=== PATIENT | male | born 1955 | race Caucasian/White ===

== ENCOUNTER 2018-10-31 06:39 | Emergency (ER) | payer OTHER ==
[2018-10-31] MEDS ORDERED: LIDOCAINE 1% MPF 5 ML VIAL ONE (07:23)
[2018-10-31] MEDS ORDERED: SMZ./TMP. 800/160 MG TABLET ONE (07:23)
[2018-10-31] MEDS ORDERED: CEPHALEXIN 250 MG CAP ONE (07:23)
[2018-10-31] MEDS ORDERED: LORAZEPAM 0.5 MG TABLET ONE (07:32)
--- NOTE | 2018-10-31 08:23 | EDPHYS ---
Physician Documentation [facility] Name: Rufino Mclain Age: 63 yrs Sex: Male : 1955 Arrival Date: 10/31/2018 Time: 06:44 Bed 15 Private MD: ED Physician Stephen James HPI: 10/31 07:05 This 63 yrs old Male presents to ER via Ambulatory with complaints of Boil. kb 07:05 The patient presents with an abscess of the gluteal cleft. Description: erythematous, kb fluctuant, swollen, warm. Onset: The symptoms/episode began/occurred 6 month(s) ago. Possible cause(s): unknown. Associated signs and symptoms: Pertinent positives: erythema, swelling, Pertinent negatives: discharge, drainage, foreign body sensation, fever, headache, nausea, shortness of breath, vomiting. Modifying factors: the symptoms are alleviated by nothing, the symptoms are aggravated by touching. Severity of symptoms: At their worst the symptoms were moderate, in the emergency department the symptoms are unchanged. The patient has not experienced similar symptoms in the past. The patient has not recently seen a physician. "I have a boil on my ass. It's been moving up and down the crack of my ass for 6 months. Now it is on the right side and it started to hurt.". Historical: - Allergies: 06:59 No Known Allergies; bb - Home Meds: 06:59 Lamictal Oral [Active]; Zyprexa Oral [Active]; ibuprofen Oral [Active]; [place] bb Carbonate Oral [Active]; Trazodone Oral [Active]; - PMHx: 06:59 Bipolar disorder; bb 07:00 Anxiety; rb1 - PSHx: 06:59 Hernia repair; bb - Immunization history:: Adult Immunizations up to date. - Social history:: Smoking status: Patient uses tobacco products, denies chronic smoking, but will smoke occasionally, Patient/guardian denies using alcohol. - Ebola Screening: : No symptoms or risks identified at this time. ROS: 07:03 Constitutional: Negative for fever, chills, and weight loss, Cardiovascular: Negative kb for chest pain, palpitations, and edema, Respiratory: Negative for shortness of breath, cough, wheezing, and pleuritic chest pain, Abdomen/GI: Negative for abdominal pain, nausea, vomiting, diarrhea, and constipation, MS/Extremity: Negative for injury and deformity, Neuro: Negative for headache, weakness, numbness, tingling, and seizure. 07:03 Skin: Positive for abscess, of the gluteal cleft. Exam: 07:03 Constitutional: This is a well developed, well nourished patient who is awake, alert, kb and in no acute distress. Head/Face: Normocephalic, atraumatic. Chest/axilla: Normal chest wall appearance and motion. Nontender with no deformity. No lesions are appreciated. Cardiovascular: Regular rate and rhythm with a normal S1 and S2. No gallops, murmurs, or rubs. Normal PMI, no JVD. No pulse deficits. Respiratory: Lungs have equal breath sounds bilaterally, clear to auscultation and percussion. No rales, rhonchi or wheezes noted. No increased work of breathing, no retractions or nasal flaring. Abdomen/GI: Soft, non-tender, with normal bowel sounds. No distension or tympany. No guarding or rebound. No evidence of tenderness throughout. MS/ Extremity: Pulses equal, no cyanosis. Neurovascular intact. Full, normal range of motion. Neuro: Awake and alert, GCS 15, oriented to person, place, time, and situation. Cranial nerves II-XII grossly intact. Motor strength 5/5 in all extremities. Sensory grossly intact. Cerebellar exam normal. Normal gait. 07:03 Skin: abscess, that is moderate sized, of the gluteal cleft, with fluctuance, that is moderate. Vital Signs: 06:59 BP 126 / 69; Pulse 72; Resp 16 S; Temp 98.1(O); Pulse Ox 98% on R/A; Weight 68.04 kg bb (R); Height 5 ft. 5 in. (165.10 cm) (R); Pain 5/10; 08:15 BP 127 / 73; Pulse 68; Resp 17; Pulse Ox 99% on R/A; rb1 06:59 Body Mass Index 24.96 (68.04 kg, 165.10 cm) bb Procedures: 08:21 I \\T\\ D: Incision and drainage was performed for an abscess of the right gluteal cleft kb Prepped with Betadine, Anesthetized with 2 ml's 1% Lidocaine. Incised with #11 blade. Drained moderate amount purulent fluid. Packed with iodoform gauze, Dressing: sterile 4x4 gauze, the patient tolerated the procedure well. MDM: 06:56 Patient medically screened. kb 07:03 Data reviewed: vital signs, nurses notes. Data interpreted: Pulse oximetry: on room air kb is 98 %. Interpretation: normal. 07:38 ED course: Pt wants to wait for to arrive before I\\T\\D. kb 08:22 Counseling: I had a detailed discussion with the patient and/or guardian regarding: the kb historical points, exam findings, and any diagnostic results supporting the discharge/admit diagnosis, the need for outpatient follow up, a general surgeon, to return to the emergency department if symptoms worsen or persist or if there are any questions or concerns that arise at home. 10/31 08:22 Order name: Wound Culture kb 10/31 07:03 Order name: I\\T\\D Setup; Complete Time: 07:30 kb Administered Medications: 07:10 Drug: Bactrim (160 mg-800 mg (DS) 1 tablet Route: PO; rb1 07:35 Follow up: Response: No adverse reaction rb1 07:10 Drug: KeFLEX 500 mg Route: PO; rb1 07:35 Follow up: Response: No adverse reaction rb1 07:20 CANCELLED (Other Intervention Used): Ativan 1 mg PO once kb 07:22 Drug: Lidocaine (1 %) 5 mg Route: Infiltration; rb1 07:23 Drug: Ativan 0.5 mg Route: PO; rb1 08:00 Follow up: Response: No adverse reaction; Anxiety decreased rb1 Disposition: 10/31/18 08:23 Discharged to Home. Impression: Cutaneous abscess of buttock. - Condition is Stable. - Discharge Instructions: Skin Abscess, [id number], Incision and Drainage, Care After. - Prescriptions for Keflex 500 mg Oral Capsule - take 1 capsule by ORAL route every 8 hours for 10 days; 30 capsule. Bactrim DS 800- 160 mg Oral Tablet - take 1 tablet by ORAL route every 12 hours for 10 days; 20 tablet. - Medication Reconciliation Form, Thank You Letter, Antibiotic Education, Prescription Opioid Use form. - Follow up: Emergency Department; When: As needed; Reason: Worsening of condition. Follow up: Private Physician; When: 2 - 3 days; Reason: Recheck today's complaints, Continuance of care, Re-evaluation by your physician. Addendum: 11/01/2018 11:15 Co-signature as Attending Physician, Stephen James MD I agree with the assessment and c rdz plan of care. Signatures: Dispatcher [employer] EDBreanna Sparks, CARLOS MANUEL-Ayla HOROWITZ-Stephen Ortiz MD MD cha Ballard, Brenda, RN RN bb Lilia Acuna, RN RN rb1 Corrections: (The following items were deleted from the chart) 10/31 07:20 07:13 Ativan 1 mg PO once ordered. kb kb 08:42 08:23 10/31/2018 08:23 Discharged to Home. Impression: Cutaneous abscess of buttock. rb1 Condition is Stable. Forms are Medication Reconciliation Form, Thank You Letter, Antibiotic Education, Prescription Opioid Use. Follow up: Emergency Department; When: As needed; Reason: Worsening of condition. Follow up: Private Physician; When: 2 - 3 days; Reason: Recheck today's complaints, Continuance of care, Re-evaluation by your physician. kb
--- NOTE | 2018-10-31 08:23 | ER ---
Nurse's Notes [facility] Name: Rufino Mclain Age: 63 yrs Sex: Male : 1955 Arrival Date: 10/31/2018 Time: 06:44 Bed 15 Private MD: Diagnosis: Cutaneous abscess of buttock Presentation: 10/31 06:56 Presenting complaint: Patient states: he has had a boil on his buttocks for approx 6 bb months which seems to have moved around and settled on his right sided gluteal cleft pt states it was not hurting before but has now started hurting which is why he came in now. Transition of care: patient was not received from another setting of care. Onset of symptoms is unknown. Risk Assessment: Do you want to hurt yourself or someone else? Patient reports no desire to harm self or others. Initial Sepsis Screen: Does the patient meet any 2 criteria? No. Patient's initial sepsis screen is negative. Does the patient have a suspected source of infection? No. Patient's initial sepsis screen is negative. Care prior to arrival: None. 06:56 Method Of Arrival: Ambulatory bb 06:56 Acuity: APOLLO 4 bb Historical: - Allergies: 06:59 No Known Allergies; bb - Home Meds: 06:59 Lamictal Oral [Active]; Zyprexa Oral [Active]; ibuprofen Oral [Active]; [place] bb Carbonate Oral [Active]; Trazodone Oral [Active]; - PMHx: 06:59 Bipolar disorder; bb 07:00 Anxiety; rb1 - PSHx: 06:59 Hernia repair; bb - Immunization history:: Adult Immunizations up to date. - Social history:: Smoking status: Patient uses tobacco products, denies chronic smoking, but will smoke occasionally, Patient/guardian denies using alcohol. - Ebola Screening: : No symptoms or risks identified at this time. Screenin:00 Abuse screen: Denies threats or abuse. Nutritional screening: No deficits noted. rb1 Tuberculosis screening: No symptoms or risk factors identified. Fall Risk None identified. Assessment: 07:00 General: Appears comfortable, Behavior is anxious, Denies fever. Pain: Complains of rb1 pain in buttocks Pain currently is 4 out of 10 on a pain scale. Neuro: Level of Consciousness is awake, alert, obeys commands, Oriented to person, place, time, situation. Cardiovascular: Capillary refill < 3 seconds is brisk in bilateral fingers. Respiratory: Airway is patent Respiratory effort is even, unlabored, Respiratory pattern is regular, symmetrical. GI: No signs and/or symptoms were reported involving the gastrointestinal system. : No signs and/or symptoms were reported regarding the genitourinary system. Derm: Skin is pink, warm \T\ dry. Pt. reports having a boil on his right buttocks. Musculoskeletal: Range of motion: intact in all extremities. 08:00 Reassessment: arrived to drive the pt. home due to the Ativan 0.5 mg PO x once. rb1 08:00 Reassessment: Patient appears in no apparent distress at this time. Patient and/or rb1 family updated on plan of care and expected duration. Pain level reassessed. Patient is alert, oriented x 3, equal unlabored respirations, skin warm/dry/pink. Pt. reports feeling less anxious. 08:17 Reassessment: Provider at bedside performing I \T\ D. rb1 Vital Signs: 06:59 BP 126 / 69; Pulse 72; Resp 16 S; Temp 98.1(O); Pulse Ox 98% on R/A; Weight 68.04 kg bb (R); Height 5 ft. 5 in. (165.10 cm) (R); Pain 5/10; 08:15 BP 127 / 73; Pulse 68; Resp 17; Pulse Ox 99% on R/A; rb1 06:59 Body Mass Index 24.96 (68.04 kg, 165.10 cm) ED Course: 06:44 Patient arrived in ED. es 06:56 Breanna Sanon FNP-C is PHCP. kb 06:56 Stephen James MD is Attending Physician. kb 06:57 Triage completed. bb 06:59 Arm band placed on Patient placed in an exam room, on a stretcher. bb 07:00 Patient has correct armband on for positive identification. Placed in gown. Bed in low rb1 position. Call light in reach. Side rails up X 1. Pulse ox on. NIBP on. 07:06 Yamile Rodríguez is Primary Nurse. cc3 08:26 Assist provider with I \T\ D: of an abscess on Set up I\T\D tray. Performed by Breanna 5 Fab TRANSPORTATION ASSOCIATE-C Culture sent to lab. Wound packed. 4X4s, Dressing with Patient tolerated well. 08:27 Wound Culture Sent. [facility] 08:42 Patient did not have IV access during this emergency room visit. rb1 Administered Medications: 07:10 Drug: Bactrim (160 mg-800 mg (DS) 1 tablet Route: PO; rb1 07:35 Follow up: Response: No adverse reaction rb1 07:10 Drug: KeFLEX 500 mg Route: PO; rb1 07:35 Follow up: Response: No adverse reaction rb1 07:20 CANCELLED (Other Intervention Used): Ativan 1 mg PO once kb 07:22 Drug: Lidocaine (1 %) 5 mg Route: Infiltration; rb1 07:23 Drug: Ativan 0.5 mg Route: PO; rb1 08:00 Follow up: Response: No adverse reaction; Anxiety decreased rb1 Outcome: 08:23 Discharge ordered by MD. kb 08:42 Patient left the ED. rb1 08:42 Discharged to home ambulatory, with family. rb1 08:42 Condition: stable 08:42 Discharge instructions given to patient, Instructed on discharge instructions, follow up and referral plans. medication usage, Demonstrated understanding of instructions, follow-up care, medications, Prescriptions given X 2. Signatures: Breanna Sanon, TRANSPORTATION ASSOCIATE-C TRANSPORTATION ASSOCIATE-Ckb Dalila Kiran Brenda, RN RN bb Lilia Acuna, RN RN Michelle Carlson Yamile Muller 3
== END 2018-10-31 08:42 | disposition home or self-care (01) ==
LOC: ER 06:39
PROC: 0J990ZZ Drainage of Buttock Subcutaneous Tissue and Fascia, Open Approach (ICD-10-PCS; principal; 2018-10-31)
DX: L02.31 Cutaneous abscess of buttock (principal); F31.9 Bipolar disorder, unspecified; Z72.0 Tobacco use
CPT/HCPCS: 87070; 87205; 99284

== ENCOUNTER 2018-11-06 07:58 | Day surgery (SDC) | payer OTHER ==
[2018-11-03 14:27] LABS: Absolute Lymphocytes (CBC) 1.8 K/uL (0.7-4.9); Absolute Monocytes 0.8 K/uL (0.1-1.3); Absolute Neutrophil 6.2 K/uL (1.8-8.0); Eosinophils % 1.9 % (0-4.4); Hematocrit 46.9 % (39.6-49.0); Lymphocytes % 19.7 % (15.3-44.8); MPV 7.7 fL (7.6-11.3); Monocytes % 8.8 % (3.3-12.3); RBC Red Blood Cell Count 5.04 M/uL (4.33-5.43)
[2018-11-03 14:47] LABS: Potassium 4.2 mmol/L (3.5-5.1)
--- NOTE | 2018-11-03 15:13 | RAD REPORT ---
EXAM DESCRIPTION: RAD - Chest Pa And Lat (2 Views) - 11/03/2018 2:42 pm CLINICAL HISTORY: pre op Chest pain. COMPARISON: No comparisons FINDINGS: Diffuse COPD is present. Subtle linear opacities are seen in the left lung base posteriorl y, likely representing atelectasis. An area of aspiration is also possible. The heart is upper limit normal in size. No displaced fractures.
--- NOTE | 2018-11-03 15:54 | EKG ---
Test Date: 2018-11-03 Test Time: 14:19:41 Enterprise Systems Architect: ANA LUISA MEASUREMENT RESULTS: Intervals: Rate: 65 ME: 138 QRSD: 102 QT: 380 QTc: 395 [place]: P: 65 ME: 138 QRS: 60 T: 51 INTERPRETIVE STATEMENTS: Normal sinus rhythm Normal ECG No previous ECG available for comparison Electronically Signed On 11-03-18 15:35:04 TRAIN CONDUCTOR by Lavon Zamora
[2018-11-06] MEDS ORDERED: Ringers Lactate 1,000 ML IV ONE (08:47)
[2018-11-06] MEDS ORDERED: CEFAZOLIN/SWI 1gm 1 GM/10 ML SYR ONE (08:47)
[2018-11-06] MEDS ORDERED: PROPOFOL 200 MG/20 ML VIAL IV ONE (12:00)
[2018-11-06] MEDS ORDERED: FENTANYL CITR 100 MCG/2 ML ONE ×2 (12:00→12:45)
[2018-11-06] MEDS ORDERED: MIDAZOLAM HCL 2 MG/2 ML INJ ONE (12:01)
[2018-11-06] MEDS ORDERED: ONDANSETRON 4 MG/2 ML VIAL ONE (12:05)
[2018-11-06] MEDS ORDERED: LIDOCAINE 1% MPF 2 ML AMPULE ONE (12:05)
[2018-11-06] MEDS ORDERED: BUPIVACAINE 0.5% PF 10 ML VIAL ONE (12:15)
--- NOTE | 2018-11-06 12:52 | P.BOP ---
Preoperative diagnosis: perianal abscess Postoperative diagnosis: same Primary procedure: EUA, anoscopy, rigid proctoscopy, incision and drainage of perianal abscess Estimated blood loss: <10cc Specimen: pus and devitalized tissue Findings: perianal abscess right posterolateral Anesthesia: General Complications: None Transferred to: Recovery Room Condition: Good
--- NOTE | 2018-11-07 02:20 | OP ---
Date of Procedure: 11/06/2018 Surgeon: Oh Baker MD Preoperative Diagnosis: Perianal abscess. Postoperative Diagnosis: Perianal abscess. Procedure: Examination under anesthesia, anoscopy, and rigid proctoscopy incision and drainage of pe rianal abscess. Specimen: Pus and devitalized tissue. Findings: Perianal abscess, right posterolateral. Anesthesia: General plus local. Indications: This is the case of a 63-year-old patient, comes to us with a perianal abscess. The pa frida went to the ER, received I and D of that area, but the wound was closed within 24 hours. The s welling in the foot is so inside with tenderness and he was offered EUA, anoscopy, proctoscopy, incis ion and drainage of perianal abscess. Once again, benefit, alternative, and risks of EUA, anoscopy, proctoscopy, incision and drainage of perianal abscess were fully explained, which include but are no t limited to infection, bleeding, damage to adjacent structures, anesthesia complication, anal strict ure and incontinence, bowel perforation, recurrence, UT, and even . He also understands this ma y not relieve any symptoms, he might need more than one surgical intervention. He understands he naomi l require wound care. Procedure In Detail: The patient was brought to operating room, placed in supine position. Anesthes ia was done without complication. The patient was placed in lithotomy total position with proper pro tection. The area of the previous scar was noticed. That I and D was closed. Induration and fluctu ance were still present. We placed a rigid proctoscope in the area of the rectum all the way about t o 10-12 cm limited by the amount of stools present up to that area. We did not see any connection of this abscess until the rectum, we did not see any fistula or masses. The scope was removed. An ano scope was placed with a window on the side once again to verify any connections with noticed internal and external hemorrhoids, but no tumors and no fistula. At that moment, I proceeded to remove that, make an incision over the area of the fluctuance he has already previously marked. Incision was car ried down deep into the buttocks and perianal region when we found this cavity. The cavity was found , cultured, and irrigated. Loculation was explored and packed with iodoform quarter of an inch. The patient tolerated the procedure well. Hemostasis was obtained. Local anesthesia was applied after irrigation. The patient was sent to recovery in stable condition. SHANDA/SHILO Voice ID: [id number] Report ID: [id number]
--- NOTE | 2018-11-07 02:20 | DS ---
Date of Discharge: 11/06/2018 Diagnosis: Perianal abscess. Procedure: EUA, anoscopy, rigid proctoscopy, incision and drainage of perianal abscess. Disposition: Home. Discharge Instructions: Activity as tolerated. No heavy lifting. Follow up in my office in 1 week. Call for appointment, [phone]. Packing is iodoform quarter of an inch daily. Follow up in my office in 1week. For medications, the patient is already taking antibiotics from home, so we are going to give him a Vicodin for pain and saline for dressing changes. SHANDA/SHILO Voice ID: [id number] Report ID: [id number]
== END 2018-11-06 14:00 | disposition home or self-care (01) ==
LOC: OR 07:58
PROVIDERS: ATTEND Surgery
PROC: 0D9Q3ZX Drainage of Anus, Percutaneous Approach, Diagnostic (ICD-10-PCS; principal; 2018-11-06 10:15)
DX: K61.0 Anal abscess (principal); L90.5 Scar conditions and fibrosis of skin; K64.4 Residual hemorrhoidal skin tags; K64.8 Other hemorrhoids
CPT/HCPCS: 46050; 93005; 87070; 85025; 80048; 36415; 87205; 88304; 87075; 71046; J2704; J2250; J3010 ×2; J2001; J0690; J2405

== ENCOUNTER 2019-09-24 16:28 | Emergency (ER) | payer OTHER ==
--- NOTE | 2019-09-24 17:09 | RAD REPORT ---
EXAM DESCRIPTION: CT - Ct Stroke Brain Wo Cont - 09/24/2019 4:52 pm CLINICAL HISTORY: facial droop Headache, drowsiness, CVA COMPARISON: No comparisons TECHNIQUE: All CT scans are performed using dose optimization technique as appropriate and may inclu de automated exposure control or mA/KV adjustment according to patient size. FINDINGS: No intracranial hemorrhage, hydrocephalus or extra-axial fluid collection.5 mm area of dim inished density right basal ganglia is present.No areas of brain edema or evidence of midline shift. The paranasal sinuses and mastoids are clear. The calvarium is intact. IMPRESSION: Small 5 mm area of diminished density right basal ganglia is likely a small lacunar infa rct, subacute or chronic timeframe favored. No acute hemorrhage seen. If there is continued clinical concern for acute CVA, MR imaging of the brain would be recommended. The findings were discussed with ER physician Dr. James on 09/24/2019 at 5:04 P.m. by telephone.
[2019-09-24] MEDS ORDERED: LORazepam 2 MG/ML VIAL ONE (17:36)
--- NOTE | 2019-09-24 18:23 | RAD REPORT ---
EXAM DESCRIPTION: MRI - Brain Wo Cont - 09/24/2019 6:13 pm CLINICAL HISTORY: left side facial droop;Kramer's Palsy Headache, drowsiness, CVA symptomology COMPARISON: Ct Stroke Brain Wo Cont dated 09/24/2019 TECHNIQUE: Multi-sequence, multiplanar MR imaging of the brain was performed without contrast. FINDINGS: No intracranial hemorrhage, hydrocephalus or extra-axial fluid collections.Mild periventri cular and deep white matter chronic microvascular ischemia seen. No edema or shift of midline structu res. No findings to suspect brain mass. DWI is negative for acute CVA. Midline structures are normally formed. Mastoid air cells and paranasal sinuses are clear. IMPRESSION: Negative for acute CVA or other acute intracranial process.
[2019-09-24] MEDS ORDERED: dexAMETHasone 10 MG/ML VIAL ONE (18:41)
--- NOTE | 2019-09-24 18:41 | ER ---
Nurse's Notes [facility] Name: Rufino Mclain Age: 64 yrs Sex: Male : 1955 Arrival Date: 09/24/2019 Time: 16:31 Bed 24 Private MD: Diagnosis: Kramer's palsy Presentation: 09/24 16:36 Presenting complaint: Patient states: i day ago i noticed my lip was swollen, but since tw2 3pm i started with a left sided facial droop and some slurred speech, no weakness in arms or legs. Transition of care: patient was not received from another setting of care. Onset of symptoms was September 24, 2019. Risk Assessment: Do you want to hurt yourself or someone else? Patient reports no desire to harm self or others. Initial Sepsis Screen: Does the patient meet any 2 criteria? No. Patient's initial sepsis screen is negative. Does the patient have a suspected source of infection? No. Patient's initial sepsis screen is negative. Care prior to arrival: None. 16:36 Method Of Arrival: Ambulatory tw2 16:36 Acuity: APOLLO 3 tw2 Triage Assessment: 16:40 The onset of the patients symptoms was September 24, 2019 at 15:00. General: Appears in tw2 no apparent distress. slender, well groomed, Behavior is calm, cooperative, appropriate for age. Pain: Denies pain. Neuro: Reports slurred speech and left facial droop since 3pm. Stroke Activation: Symptom onset < 3 hours Physician: Stroke Attending; Name: ; Notified At: ; Arrived At: Physician: Chief Stroke Resident; Name: ; Notified At: ; Arrived At: Physician: Stroke Resident; Name: ; Notified At: ; Arrived At: Physician: ED Attending; Name: ; Notified At: ; Arrived At: Physician: ED Resident; Name: ; Notified At: ; Arrived At: Historical: - Allergies: 16:40 No Known Allergies; tw2 - Home Meds: 16:40 Lamictal 200 mg oral tab 1 tab once daily [Active]; trazodone 50 mg oral tab 1 tab 2 tw2 times per day [Active]; Zyprexa 2.5 mg oral tab 2 tabs once daily [Active]; Ibuprofen Oral [Active]; - PMHx: 16:40 Anxiety; Bipolar disorder; tw2 - PSHx: 16:40 Hernia repair; tw2 - Immunization history:: Adult Immunizations. - Coronavirus screen:: The patient has NOT traveled to [place], [place], or [place] in the past 14 days. - Social history:: Smoking status: . - Ebola Screening: : Patient denies travel to an Ebola-affected area in the 21 days before illness onset. Screenin:13 Abuse screen: Denies threats or abuse. Nutritional screening: No deficits noted. tw2 Tuberculosis screening: No symptoms or risk factors identified. Fall Risk None identified. Assessment: 17:00 General: Appears in no apparent distress. comfortable, Behavior is calm, cooperative. mg2 Pain: Denies pain. Neuro: Level of Consciousness is awake, alert, obeys commands, Oriented to person, place, time, situation. Neuro: Cardiovascular: Capillary refill < 3 seconds Patient's skin is warm and dry. Respiratory: Airway is patent Respiratory effort is even, unlabored, Respiratory pattern is regular, symmetrical. GI: No signs and/or symptoms were reported involving the gastrointestinal system. : No signs and/or symptoms were reported regarding the genitourinary system. EENT: No signs and/or symptoms were reported regarding the EENT system. Derm: Skin is intact, is healthy with good turgor, Skin is pink, warm \T\ dry. normal. 18:16 VAN Scoring: Arm Drift: Patients demonstrates NO arm weakness. Patient is VAN Negative. mg2 Visual Disturbance: No visual disturbance noted. Aphasia: No aphasia noted. Neglect: No neglect noted. 18:25 Reassessment: provider cancelled the blood work. mg2 18:59 Reassessment: Patient appears in no apparent distress at this time. mg2 Vital Signs: 16:38 BP 136 / 77; Pulse 76; Resp 18; Temp 97.8(TE); Pulse Ox 99% on R/A; Weight 66.68 kg tw2 (R); Height 5 ft. 5 in. (165.10 cm); Pain 0/10; 17:30 BP 130 / 87; Pulse 70; Resp 18; Temp 98; Pulse Ox 100% on R/A; mg2 18:59 BP 131 / 78; Pulse 80; Resp 18; Temp 98; Pulse Ox 100% on R/A; mg2 16:38 Body Mass Index 24.46 (66.68 kg, 165.10 cm) tw2 NIH Stroke Scale Scores: 18:16 NIHSS Score: 1 mg2 ED Course: 16:31 Patient arrived in ED. mr 16:37 Triage completed. tw2 16:37 Arm band placed on. tw2 16:38 Adult w/ patient. pt transported to CT at this time. tw2 16:42 Arley Richmond, ANTONIO is PHCP. pm1 16:42 Stephen James MD is Attending Physician. pm1 16:53 CT Stroke Brain w/o Contrast In Process Unspecified. EDMS 17:30 Inserted saline lock: 20 gauge in right forearm, using aseptic technique. mg2 17:31 Noah Chavez, RN is Primary Nurse. mg2 18:17 MRI - Brain Wo Cont In Process Unspecified. EDMS 18:18 No provider procedures requiring assistance completed. mg2 18:50 Braden Joya MD is Referral Physician. pm1 18:59 IV discontinued, intact, bleeding controlled, No redness/swelling at site. Pressure mg2 dressing applied. Administered Medications: 17:43 Drug: Ativan 0.5 mg Route: IVP; Site: right forearm; mg2 18:25 Follow up: Response: No adverse reaction mg2 18:42 Drug: Decadron - Dexamethasone 10 mg Route: IVP; Site: right forearm; mg2 18:42 Follow up: Response: No adverse reaction; Medication administered at discharge. mg2 18:59 Drug: Valtrex 1000 mg Route: PO; mg2 18:59 Follow up: Response: No adverse reaction; Medication administered at discharge. mg2 Outcome: 18:41 Discharge ordered by . pm1 18:59 Discharged to home ambulatory, with family. mg2 18:59 Condition: stable 18:59 Discharge instructions given to patient, family, Instructed on discharge instructions, follow up and referral plans. medication usage, Demonstrated understanding of instructions, follow-up care, medications. 18:59 Prescriptions given X 2. 19:00 Patient left the ED. mg2 NIH Stroke Scale - NIH Stroke Score Date: 09/24/2019 Time: 18:16 Total Score = 1 1a. Level of Consciousness (LOC) - 0(Alert) 1b. Level of Consciousness (LOC) (Year \T\ Age) - 0(Both) 1c. LOC Commands (Open \T\ Closes Eyes/Senior Administrative Services Officer) - 0(Both) 2. Best Gaze (Lateral Gaze Paresis) - 0(Normal) 3. Visual Field Loss - 0(No visual loss) 4. Facial Palsy - 1(Minor Paralysis) 5a. Left Arm: Motor (10-second hold) - 0(No drift) 5b. Right Arm: Motor (10-second hold) - 0(No drift) 6a. Left Leg: Motor (5-second hold - always test supine) - 0(No drift) 6b. Right Leg: Motor (5-second hold - always test supine) - 0(No drift) 7. Limb Ataxia (finger/nose \T\ heel/aaron - test with eyes open) - 0(Absent) 8. Sensory Loss (pinprick arms/legs/face) - 0(Normal) 9. Best Language: Aphasia (description/naming/reading) - 0(No aphasia) 10. Dysarthria (speech clarity - read or repeat words) - 0(Normal) 11. Extinction and Inattention (visual/tactile/auditory/spatial/personal) - 0(No abnormality) Initials: mg2 Signatures: Dispatcher [employer] Natalie Sapp Patrick, ANTONIO DESULPHURING OPERATOR pm1 Rachel Mcdowell, SAMIA RN tw2 Noah Chavez RN RN mg2
--- NOTE | 2019-09-24 18:42 | EDPHYS ---
Physician Documentation [facility] Name: Rufino Mclain Age: 64 yrs Sex: Male : 1955 Arrival Date: 09/24/2019 Time: 16:31 Bed 24 Private MD: ED Physician Stephen James HPI: 09/24 16:59 This 64 yrs old Male presents to ER via Ambulatory with complaints of Left pm1 facial droop. 16:59 The patient presents to the emergency department with left facial droop. Onset: The pm1 symptoms/episode began/occurred yesterday, he noticed a little swelling to the left side of his lip and then he started to have left sided droop. No extremity weakness r numbness. Context: occurred at home. Associated signs and symptoms: Pertinent positives: slurred speech, Pertinent negatives: fever, headache, nausea, paresthesias, weakness. Severity of symptoms: Pain is currently a 0 / 10. Patient's baseline: Neuro: alert and fully oriented, Motor: no deficits, Ambulation: walks without assistance, Speech: normal. The patient has not experienced similar symptoms in the past. Historical: - Allergies: 16:40 No Known Allergies; tw2 - Home Meds: 16:40 Lamictal 200 mg oral tab 1 tab once daily [Active]; trazodone 50 mg oral tab 1 tab 2 tw2 times per day [Active]; Zyprexa 2.5 mg oral tab 2 tabs once daily [Active]; Ibuprofen Oral [Active]; - PMHx: 16:40 Anxiety; Bipolar disorder; tw2 - PSHx: 16:40 Hernia repair; tw2 - Immunization history:: Adult Immunizations. - Coronavirus screen:: The patient has NOT traveled to [place], [place], or [place] in the past 14 days. - Social history:: Smoking status: . - Ebola Screening: : Patient denies travel to an Ebola-affected area in the 21 days before illness onset. ROS: 16:59 Constitutional: Negative for fever, chills, and weight loss, Eyes: Negative for injury, pm1 pain, redness, and discharge, ENT: Negative for injury, pain, and discharge, Neck: Negative for injury, pain, and swelling, Cardiovascular: Negative for chest pain, palpitations, and edema, Respiratory: Negative for shortness of breath, cough, wheezing, and pleuritic chest pain, Abdomen/GI: Negative for abdominal pain, nausea, vomiting, diarrhea, and constipation, Back: Negative for injury and pain, MS/Extremity: Negative for injury and deformity, Skin: Negative for injury, rash, and discoloration. 16:59 Neuro: Negative for altered mental status, dizziness, gait disturbance, weakness. Exam: 16:59 Constitutional: This is a well developed, well nourished patient who is awake, alert, pm1 and in no acute distress. 16:59 ENT: Nares patent. No nasal discharge, no septal abnormalities noted. Tympanic membranes are normal and external auditory canals are clear. Oropharynx with no redness, swelling, or masses, exudates, or evidence of obstruction, uvula midline. Mucous membranes moist. Neck: Trachea midline, no thyromegaly or masses palpated, and no cervical lymphadenopathy. Supple, full range of motion without nuchal rigidity, or vertebral point tenderness. No Meningismus. Chest/axilla: Normal chest wall appearance and motion. Nontender with no deformity. No lesions are appreciated. Cardiovascular: Regular rate and rhythm with a normal S1 and S2. No gallops, murmurs, or rubs. Normal PMI, no JVD. No pulse deficits. Respiratory: Lungs have equal breath sounds bilaterally, clear to auscultation and percussion. No rales, rhonchi or wheezes noted. No increased work of breathing, no retractions or nasal flaring. Abdomen/GI: Soft, non-tender, with normal bowel sounds. No distension or tympany. No guarding or rebound. No evidence of tenderness throughout. Back: No spinal tenderness. No costovertebral tenderness. Full range of motion. Skin: Warm, dry with normal turgor. Normal color with no rashes, no lesions, and no evidence of cellulitis. MS/ Extremity: Pulses equal, no cyanosis. Neurovascular intact. Full, normal range of motion. 16:59 Eyes: difficulty closing left eye lid fully. 16:59 Neuro: Orientation: is normal, Mentation: is normal, Cerebellar function: normal finger to nose testing, Motor: is normal, moves all fours, strength is normal, strength is 5/5 in all extremities, Sensation: is normal, no obvious gross deficits, Facial palsy with forehead sparing on left side. Smiling drawing to right side. Difficulty with closing left eyelid fully. Vital Signs: 16:38 BP 136 / 77; Pulse 76; Resp 18; Temp 97.8(TE); Pulse Ox 99% on R/A; Weight 66.68 kg tw2 (R); Height 5 ft. 5 in. (165.10 cm); Pain 0/10; 17:30 BP 130 / 87; Pulse 70; Resp 18; Temp 98; Pulse Ox 100% on R/A; mg2 18:59 BP 131 / 78; Pulse 80; Resp 18; Temp 98; Pulse Ox 100% on R/A; mg2 16:38 Body Mass Index 24.46 (66.68 kg, 165.10 cm) tw2 NIH Stroke Scale Scores: 18:16 NIHSS Score: 1 mg2 MDM: 16:42 Patient medically screened. pm1 17:14 ED course: No TPA indicated because clinically bells palsy. pm1 18:40 Data reviewed: vital signs. Data interpreted: Pulse oximetry: on room air is 100 %. pm1 Interpretation: normal. Counseling: I had a detailed discussion with the patient and/or guardian regarding: the historical points, exam findings, and any diagnostic results supporting the discharge/admit diagnosis, radiology results, the need for outpatient follow up, for definitive care, a neurologist, to return to the emergency department if symptoms worsen or persist or if there are any questions or concerns that arise at home. 09/24 16:44 Order name: CT Stroke Brain w/o Contrast; Complete Time: 17:14 pm09/24 16:44 Order name: Accucheck pm09/24 16:44 Order name: Cardiac monitoring 09/24 16:44 Order name: EKG - Nurse/Tech pm09/24 17:16 Order name: MRI - Brain Wo Cont; Complete Time: 18:29 pm1 09/24 16:44 Order name: IV Saline Lock pm09/24 16:44 Order name: Labs collected and sent pm09/24 16:44 Order name: NPO pm09/24 16:44 Order name: O2 Per Protocol pm09/24 16:44 Order name: O2 Sat Monitoring pm1 Administered Medications: 17:43 Drug: Ativan 0.5 mg Route: IVP; Site: right forearm; mg2 18:25 Follow up: Response: No adverse reaction mg2 18:42 Drug: Decadron - Dexamethasone 10 mg Route: IVP; Site: right forearm; mg2 18:42 Follow up: Response: No adverse reaction; Medication administered at discharge. mg2 18:59 Drug: Valtrex 1000 mg Route: PO; mg2 18:59 Follow up: Response: No adverse reaction; Medication administered at discharge. mg2 Disposition: 09/25 08:43 Co-signature as Attending Physician, Stephen James MD I agree with the assessment and kesha plan of care. Disposition: 09/24/19 18:41 Discharged to Home. Impression: Kramer's palsy. - Condition is Stable. - Discharge Instructions: Kramer Palsy, Adult. - Prescriptions for prednisone 10 mg Oral tablet - take 1 tablet by ORAL route as directed Take 6 tablets once daily for 3 days, then take 4 tablets once daily for 3 days, then take 2 tablets once daily for 2 days, then 1 tablet once daily for 2 days; 36 tablet. Valtrex 1 g Oral Tablet - take 1 tablet by ORAL route every 8 hours for 7 days; 21 tablet. - Medication Reconciliation Form, Thank You Letter, Antibiotic Education, Prescription Opioid Use form. - Follow up: Emergency Department; When: As needed; Reason: Worsening of condition. Follow up: Private Physician; When: 2 - 3 days; Reason: Recheck today's complaints, Continuance of care, Re-evaluation by your physician. Follow up: Braden Joya MD; When: 2 - 3 days; Reason: Recheck today's complaints, Continuance of care, Re-evaluation by your physician. - Problem is new. - Symptoms have improved. NIH Stroke Scale - NIH Stroke Score Date: 09/24/2019 Time: 18:16 Total Score = 1 1a. Level of Consciousness (LOC) - 0(Alert) 1b. Level of Consciousness (LOC) (Year \T\ Age) - 0(Both) 1c. LOC Commands (Open \T\ Closes Eyes/Medical Lab Technician) - 0(Both) 2. Best Gaze (Lateral Gaze Paresis) - 0(Normal) 3. Visual Field Loss - 0(No visual loss) 4. Facial Palsy - 1(Minor Paralysis) 5a. Left Arm: Motor (10-second hold) - 0(No drift) 5b. Right Arm: Motor (10-second hold) - 0(No drift) 6a. Left Leg: Motor (5-second hold - always test supine) - 0(No drift) 6b. Right Leg: Motor (5-second hold - always test supine) - 0(No drift) 7. Limb Ataxia (finger/nose \T\ heel/aaron - test with eyes open) - 0(Absent) 8. Sensory Loss (pinprick arms/legs/face) - 0(Normal) 9. Best Language: Aphasia (description/naming/reading) - 0(No aphasia) 10. Dysarthria (speech clarity - read or repeat words) - 0(Normal) 11. Extinction and Inattention (visual/tactile/auditory/spatial/personal) - 0(No abnormality) Initials: mg2 Signatures: Dispatcher [employer] EDMS Stephen James MD MD cha Marinas, Patrick, NP MICROBIOLOGY LAB ASSISTANT pm1 Rachel Mcdowell, SAMIA RN tw2 Noah Chavez RN RN mg2 Corrections: (The following items were deleted from the chart) 09/24 17:04 16:44 Stroke Swallow Screen ordered. pm1 pm1 17:05 16:46 Chest Single View+RAD.RAD.BRZ ordered. EDSD EDMS 18:43 16:45 BASIC METABOLIC PANEL+C.LAB.BRZ ordered. EDSD EDMS 18:43 16:46 CBC+H.LAB.BRZ ordered. EDSD EDMS 18:43 16:46 PROTIME (+INR)+COAG.LAB.BRZ ordered. EDSD EDMS 18:43 16:46 PTT, ACTIVATED+COAG.LAB.BRZ ordered. EDSD EDSD 18:50 18:41 09/24/2019 18:41 Discharged to Home. Impression: Kramer's palsy. Condition pm1 is Stable. Forms are Medication Reconciliation Form, Thank You Letter, Antibiotic Education, Prescription Opioid Use. Follow up: Emergency Department; When: As needed; Reason: Worsening of condition. Follow up: Private Physician; When: 2 - 3 days; Reason: Recheck today's complaints, Continuance of care, Re-evaluation by your physician. Problem is new. Symptoms have improved. pm1 19:00 18:50 09/24/2019 18:41 Discharged to Home. Impression: Kramer's palsy. Condition mg2 is Stable. Discharge Instructions: Kramer Palsy, Adult. Prescriptions for prednisone 10 mg Oral tablet - take 1 tablet by ORAL route as directed Take 6 tablets once daily for 3 days, then take 4 tablets once daily for 3 days, then take 2 tablets once daily for 2 days, then 1 tablet once daily for 2 days; 36 tablet, Valtrex 1 g Oral Tablet - take 1 tablet by ORAL route every 8 hours for 7 days; 21 tablet. and Forms are Medication Reconciliation Form, Thank You Letter, Antibiotic Education, Prescription Opioid Use. Follow up: Emergency Department; When: As needed; Reason: Worsening of condition. Follow up: Private Physician; When: 2 - 3 days; Reason: Recheck today's complaints, Continuance of care, Re-evaluation by your physician. Follow up: Braden Joya; When: 2 - 3 days; Reason: Recheck today's complaints, Continuance of care, Re-evaluation by your physician. Problem is new. Symptoms have improved. pm1
[2019-09-24] MEDS ORDERED: VALACYCLOVIR 500 MG TAB ONE (18:54)
[2019-09-24 19:18] VITALS: TEMP 98; O2SAT 100
[2019-09-24 19:19] VITALS: BP 131/78
== END 2019-09-24 19:00 | disposition home or self-care (01) ==
LOC: ER 16:28
DX: G51.0 Bell's palsy (principal); F31.9 Bipolar disorder, unspecified
CPT/HCPCS: 70450; 70551; 96375; 96374; 99284; J1100